=== PATIENT | male | born 1950 | race Hispanic/Latino ===

== ENCOUNTER → 2020-11-08 | Outpatient (CLI) | payer OTHER ==
[~2020-11-08] VITALS: Ht 175.3 cm; Wt 93.9 kg
[~2020-11-08] MED LIST: REGADENOSON 0.4 MG/5 ML PF SYG IVP SCH
== END | disposition home or self-care (01) ==
LOC: SHCH 07:46 → EDUNIT# 08:10
PROVIDERS: ATTEND Internal Medicine Cardiovascular Disease
DX: I25.2 Old myocardial infarction (principal); I20.9 Angina pectoris, unspecified; Z95.0 Presence of cardiac pacemaker
CPT/HCPCS: 78452; 93017; 96374; A9500 ×2; J2785

== ENCOUNTER → 2021-07-27 | Outpatient (CLI) | payer OTHER ==
[~2021-07-27] MED LIST changes: +ATOR40TA69 PO; +CARV25TA77 PO; +DEXA6TAB PO; +FURO40TA7 PO; +INSLAN SQ; +IOHEXOL 350 MG/ML 100ML INFUS..BTL IV ONE; +METF-446 PO; +METOPROLOL TARTRATE 1 MG/ML 5ML VIAL IV ONE; +OSEL75 PO; -REGADENOSON 0.4 MG/5 ML PF SYG IVP SCH; +RIVA20TA PO; +SEMA1PEN3 SQ
== END | disposition home or self-care (01) ==
LOC: RAH 07:27
PROVIDERS: ATTEND Internal Medicine Cardiovascular Disease
DX: I48.20 Chronic atrial fibrillation, unspecified (principal)
CPT/HCPCS: 75574; J3490 ×2; Q9967

== ENCOUNTER 2021-09-28 07:29 | Day surgery (SDC) | payer OTHER ==
[2021-09-22 13:12] LABS: BASOPHILS % (AUTO) 0.7 % (0.0-5.0); EOSINOPHILS % (AUTO) 2.5 % (0.0-8.0); HEMATOCRIT 44.3 % (42-54); MEAN CORPUSCULAR HEMOGLOBIN 30.2 pg (27.0-33.0); MEAN CORPUSCULAR VOLUME 91.7 fL (79-99); MONOCYTES % (AUTO) 8.6 % (3.0-13.0); NEUTROPHILS % (AUTO) 53.1 % (40.0-77.0); PLATELET COUNT (AUTO) 339 K/uL (130-400); RED BLOOD CELL COUNT(AUTO) 4.83 MIL/uL (4.50-6.20); RED CELL DISTRIBUTION WIDTH 15.6 % (11.0-15.5); WHITE BLOOD COUNT (AUTO) 11.2 K/uL (4.8-10.8)
[2021-09-22 13:17] LABS: POTASSIUM 5.1 mmol/L (3.5-5.1)
[2021-09-22 13:20] LABS: INR 1.05 (0.85-1.15); PROTHROMBIN TIME 11.4 SEC (9.6-11.6)
[2021-09-22 13:22] LABS: PARTIAL THROMBOPLASTIN TIME 32.5 SEC (26.3-35.5)
[2021-09-22 13:39] LABS: APPEARANCE,URINE CLEAR (CLEAR); BILIRUBIN,URINE NEGATIVE (NEGATIVE); COLOR,URINE YELLOW (YELLOW); GLUCOSE, URINE (UA) >=1000 mg/dL (NEGATIVE); KETONES,URINE NEGATIVE (NEGATIVE); LEUKOCYTE ESTERASE ,URINE NEGATIVE (NEGATIVE); NITRATE,URINE NEGATIVE (NEGATIVE); OCCULT BLOOD,URINE TRACE-INTACT (NEGATIVE); PH,URINE 5.5 (5.0-8.0); PROTEIN,URINE NEGATIVE (NEGATIVE); UROBILINOGEN,URINE 0.2 mg/dL (0.2-1.0)
[2021-09-22 13:41] LABS: B-TYPE NATRIURETIC PEPTIDE 90 pg/mL (0-100)
[2021-09-22 13:47] LABS: RBC,URINE 0-1 /HPF (0-1)
[2021-09-22 13:48] LABS: BACTERIA,URINE Rare /HPF (None Seen); SQUAMOUS EPITHELIAL CELL,UR Rare /HPF (0-2); WBC,URINE 0-1 /HPF (0-1)
[2021-09-27 10:19] VITALS: BP 118/58
[~2021-09-28] VITALS: Ht 175.3 cm; Wt 74.9 kg
[2021-09-28] VITALS (9 sets, daily range): BP systolic 99–146; BP diastolic 49–78
[~2021-09-28 07:29] MED LIST changes: +0.9% NACL 500ML IV.SOLN 500 ML IV SCH; +CARV12.511 PO; -CARV25TA77 PO; +CYAN500T9 PO; -DEXA6TAB PO; +DICL100G31 TP; +EMPA25TA PO; +FURO20TA4 PO; -FURO40TA7 PO; +GABA600T10 PO; -IOHEXOL 350 MG/ML 100ML INFUS..BTL IV ONE; +LEVO125C4 PO; -METOPROLOL TARTRATE 1 MG/ML 5ML VIAL IV ONE; -OSEL75 PO; +VENL-63 PO; +VITAMIN B12 PO
[2021-09-28] MEDS ORDERED: 0.9%NACL 1000ML 1,000 ML IV ONE (08:52)
[2021-09-28] MEDS ORDERED: LIDOCAINE HCL 1% 20 ML VIAL ONE (09:14)
[2021-09-28] MEDS ORDERED: IOHEXOL 350 MG/ML 100ML INFUS..BTL IV ONE (09:15)
[2021-09-28] MEDS ORDERED: NITROGLYCERIN 50MG VIAL ONE (09:15)
[2021-09-28] MEDS ORDERED: IOHEXOL-350 50ML VIAL IV ONE (09:15)
[2021-09-28] MEDS ORDERED: MIDAZOLAM HCL 1 MG/ML 2ML VIAL ONE (09:16)
[2021-09-28] MEDS ORDERED: FENTANYL CITRATE PF 50 MCG/1 ML 2ML VIAL ONE (09:16)
[2021-09-28] MEDS ORDERED: GLUCAGON 1MG KIT 1 MG ML IM PRN (10:30)
[2021-09-28] MEDS ORDERED: DEXTROSE 50%-WATER 50 ML DISP.SYRIN IV PRN (10:30)
[2021-09-28] MEDS ORDERED: NITROGLYCERIN 0.4 MG SL TAB SL PRN (10:30)
[2021-09-28] MEDS: 0.9%NACL 1000ML 1,000 ML IV SCH ×2 (10:32→14:17)
[2021-09-28] MEDS ORDERED: INSULIN HUMULIN R 100 UNIT/ML 3ML SQ SCH (11:30)
[2021-09-28] MEDS ORDERED: ACETAMINOPHEN 500 MG TABLET ONE (13:15)
[2021-09-28] MEDS ORDERED: ACETAMINOPHEN 500 MG TABLET PO ONE (13:30)
== END 2021-09-28 14:21 | disposition home or self-care (01) ==
LOC: DAH 07:29
PROVIDERS: ATTEND Internal Medicine Cardiovascular Disease
DX: I25.119 Atherosclerotic heart disease of native coronary artery with unspecified angina pectoris (principal); I11.0 Hypertensive heart disease with heart failure; I50.32 Chronic diastolic (congestive) heart failure; I47.2 Ventricular tachycardia; I45.9 Conduction disorder, unspecified; E78.5 Hyperlipidemia, unspecified; I48.20 Chronic atrial fibrillation, unspecified; E11.9 Type 2 diabetes mellitus without complications; I25.2 Old myocardial infarction; Z79.899 Other long term (current) drug therapy; Z79.82 Long term (current) use of aspirin; Z79.01 Long term (current) use of anticoagulants; Z79.890 Hormone replacement therapy; Z95.5 Presence of coronary angioplasty implant and graft; Z98.890 Other specified postprocedural states; Z86.73 Personal history of transient ischemic attack (TIA), and cerebral infarction without residual deficits; Z87.891 Personal history of nicotine dependence; Z82.49 Family history of ischemic heart disease and other diseases of the circulatory system; Z83.3 Family history of diabetes mellitus
CPT/HCPCS: 80048; 83880; 85025; 85610; 85730; 81001; 36415; 71045; 93005; 93458; 82948 ×3; Q9965; C1894 ×2; C1760; J3010; J7030; J2250; J3490; Q9967; A4215; A4222; A4221; A4663; A4216; A4606; A4223 ×3; 99156; 99157

== ENCOUNTER → 2022-01-09 | Outpatient (CLI) | payer OTHER ==
[~2022-01-09] MED LIST changes: -0.9% NACL 500ML IV.SOLN 500 ML IV SCH; +AEC81 PO; +ATOR20TA65 PO; -ATOR40TA69 PO; -CARV12.511 PO; +CYAN-35 PO; -CYAN500T9 PO; -DICL100G31 TP; -FURO20TA4 PO; +FURO20TA6 PO; +INSU100V52 SQ; +MAGN500C4 PO; +SACU1TAB PO; -VITAMIN B12 PO
== END | disposition home or self-care (01) ==
LOC: SHCH 08:35
PROVIDERS: ATTEND Internal Medicine Cardiovascular Disease
DX: I10 Essential (primary) hypertension (principal); I25.10 Atherosclerotic heart disease of native coronary artery without angina pectoris; E11.9 Type 2 diabetes mellitus without complications; E78.5 Hyperlipidemia, unspecified; I25.41 Coronary artery aneurysm; I48.91 Unspecified atrial fibrillation
CPT/HCPCS: 93306

== ENCOUNTER 2022-05-22 05:38 | Day surgery (SDC) | payer OTHER ==
[2022-05-18 15:35] LABS: BASOPHILS % (AUTO) 0.8 % (0.0-5.0); HEMATOCRIT 42.8 % (42-54); MEAN CORPUSCULAR HEMOGLOBIN 28.3 pg (27.0-33.0); MEAN CORPUSCULAR HGB CONC 32.2 g/dL (32.0-36.0); MEAN CORPUSCULAR VOLUME 87.9 fL (79-99); MONOCYTES % (AUTO) 9.3 % (3.0-13.0); NEUTROPHILS % (AUTO) 60.8 % (40.0-77.0); PLATELET COUNT (AUTO) 383 K/uL (130-400); RED BLOOD CELL COUNT(AUTO) 4.87 MIL/uL (4.50-6.20); RED CELL DISTRIBUTION WIDTH 17.1 % (11.0-15.5); WHITE BLOOD COUNT (AUTO) 10.5 K/uL (4.8-10.8)
[2022-05-18 15:39] VITALS: BP 116/52
[2022-05-18 15:51] LABS: CREATININE 1.3 mg/dL (0.5-1.5); POTASSIUM 3.9 mmol/L (3.5-5.1)
[2022-05-18 15:52] LABS: INR 1.15 (0.85-1.15); PROTHROMBIN TIME 12.4 SEC (9.6-11.6)
[2022-05-18 15:53] LABS: PARTIAL THROMBOPLASTIN TIME 36.7 SEC (26.3-35.5)
[~2022-05-22] VITALS: Ht 175.3 cm; Wt 73.9 kg
[2022-05-22] VITALS (10 sets, daily range): BP systolic 95–147; BP diastolic 50–82
[~2022-05-22 05:38] MED LIST changes: +FURO20TA4 PO; -FURO20TA6 PO; +GLIP5TAB11 PO; -INSU100V52 SQ; +LISI2.5T13 PO; +MAGN400T51 PO; -MAGN500C4 PO; +METO-408 PO; -SACU1TAB PO; +VITAMIN B2 PO
[2022-05-22] MEDS ORDERED: 0.9%NACL 1000ML 1,000 ML IV ONE (06:27)
[2022-05-22 06:43] LABS: CREATININE 1.4 mg/dL (0.5-1.5); POTASSIUM 3.6 mmol/L (3.5-5.1)
[2022-05-22] MEDS ORDERED: BUPIVACAINE/PF 0.25% 10ML VIAL IJ ONE (07:14)
[2022-05-22] MEDS ORDERED: CEFAZOLIN SODIUM 1 GM VIAL ONE (07:14)
[2022-05-22] MEDS ORDERED: LIDOCAINE HCL 1% MDV 50ML VIAL ONE (07:14)
[2022-05-22] MEDS ORDERED: MIDAZOLAM HCL 1 MG/ML 2ML VIAL ONE ×3 (07:15→10:18)
[2022-05-22] MEDS ORDERED: MEPERIDINE-PF 25 MG/ML SYG ONE ×3 (07:15→10:18)
[2022-05-22] MEDS ORDERED: IODIXANOL 320 MG/ML 100 ML VIAL ONE (07:15)
[2022-05-22] MEDS ORDERED: BACITRACIN 1 EACH PACKET TP ONE (10:33)
[2022-05-22] MEDS ORDERED: TRAM50TA4 PO (11:13)
[2022-05-22] MEDS ORDERED: ACETAMINOPHEN 500 MG TABLET PO PRN (11:30)
[2022-05-22] MEDS ORDERED: ACETAMINOPHEN WITH CODEINE 1 TAB TAB PO PRN (11:30)
== END 2022-05-22 14:50 | disposition home or self-care (01) ==
LOC: DAH 05:38
PROVIDERS: ATTEND Internal Medicine Cardiovascular Disease
DX: I44.2 Atrioventricular block, complete (principal); I25.5 Ischemic cardiomyopathy; I50.42 Chronic combined systolic (congestive) and diastolic (congestive) heart failure; I25.10 Atherosclerotic heart disease of native coronary artery without angina pectoris; E11.9 Type 2 diabetes mellitus without complications; I25.2 Old myocardial infarction; Z79.01 Long term (current) use of anticoagulants; Z79.899 Other long term (current) drug therapy; Z79.82 Long term (current) use of aspirin; Z79.84 Long term (current) use of oral hypoglycemic drugs; Z98.890 Other specified postprocedural states; Z86.73 Personal history of transient ischemic attack (TIA), and cerebral infarction without residual deficits; Z83.3 Family history of diabetes mellitus; Z82.49 Family history of ischemic heart disease and other diseases of the circulatory system; Z83.430 Family history of elevated lipoprotein(a); Z87.891 Personal history of nicotine dependence; Z95.5 Presence of coronary angioplasty implant and graft
CPT/HCPCS: 80048 ×2; 85025; 85610; 85730; 36415 ×2; 93005; 33249; 33225; 33233; 82948 ×2; 71045; C1769 ×4; C1882; C1895; C1887; J0690; J7030; J2250 ×3; J3490 ×2; J2175 ×3; Q9967; A4215; A6251; A4222; A4221; A4663; A4216; A6258; A4606; C1900 ×2; A4223 ×3; 99156; 99157

== ENCOUNTER → 2022-06-06 | Outpatient (CLI) | payer MEDICARE ==
[~2022-06-06] MED LIST changes: +TRAM50TA4 PO
[2022-06-06 12:18] LABS: BASOPHILS % (AUTO) 0.9 % (0.0-5.0); EOSINOPHILS % (AUTO) 1.5 % (0.0-8.0); HEMATOCRIT 46.1 % (42-54); MEAN CORPUSCULAR HGB CONC 32.5 g/dL (32.0-36.0); MEAN CORPUSCULAR VOLUME 86.2 fL (79-99); MONOCYTES % (AUTO) 9.3 % (3.0-13.0); PLATELET COUNT (AUTO) 458 K/uL (130-400); RED BLOOD CELL COUNT(AUTO) 5.35 MIL/uL (4.50-6.20); RED CELL DISTRIBUTION WIDTH 17.1 % (11.0-15.5); WHITE BLOOD COUNT (AUTO) 12.7 K/uL (4.8-10.8)
== END | disposition home or self-care (01) ==
LOC: LAB 06-05 15:28
PROVIDERS: ATTEND Internal Medicine Cardiovascular Disease
DX: I25.5 Ischemic cardiomyopathy (principal)
CPT/HCPCS: 36415; 85025; 87040

== ENCOUNTER → 2022-06-21 | Outpatient (CLI) | payer OTHER ==
[~2022-06-21] MED LIST changes: +AMOX1TAB16 PO; +BISA-151 PO; +FURO40TA5 PO; +PANT40TA PO
== END | disposition home or self-care (01) ==
LOC: SHCH 08:51
PROVIDERS: ATTEND Internal Medicine Cardiovascular Disease
DX: I50.22 Chronic systolic (congestive) heart failure (principal)
CPT/HCPCS: 93306

== ENCOUNTER → 2023-07-03 | Outpatient (CLI) | payer OTHER ==
[~2023-07-03] MED LIST changes: -FURO20TA4 PO; -GLIP5TAB11 PO; -VENL-63 PO
== END | disposition home or self-care (01) ==
LOC: SHCH 10:35
PROVIDERS: ATTEND Internal Medicine Cardiovascular Disease
DX: I08.3 Combined rheumatic disorders of mitral, aortic and tricuspid valves (principal); R06.09 Other forms of dyspnea; I20.9 Angina pectoris, unspecified
CPT/HCPCS: 93306

== ENCOUNTER 2025-01-26 10:54 | Emergency (ER) | payer OTHER ==
[~2025-01-26] VITALS: Ht 175.3 cm; Wt 86.2 kg
[~2025-01-26 10:54] MED LIST changes: +GABA-1405 PO; -GABA600T10 PO; -LEVO125C4 PO; +LEVO125C5 PO
[2025-01-26 12:00] LABS: NUCLEATED RED BLOOD CELLS 0.0 % (0.0-0.19); PLATELET COUNT (AUTO) 362.0 K/uL (130-400); RED BLOOD CELL COUNT(AUTO) 4.63 MIL/uL (4.50-6.20); RED CELL DISTRIBUTION WIDTH 17.3 % (11.0-15.5); WHITE BLOOD COUNT (AUTO) 9.3 K/uL (4.8-10.8)
--- NOTE | 2025-01-26 12:01 | ERN ---
General Chief Complaint: Eye Problems Stated Complaint: LEFT EYE, BLURRED VISION X 2 DAYS Time Seen by MD: 11:02 Source: patient History of Present Illness Initial Comments Mr. Guerrero, 74M came to ER with chief complaint of sudden painless vision loss of the left eye and felt like a blood vessel pop in the eye since Sunday morning. He reports no redness, painful eye movement or headache or eye pain. He reports blurry vision and can see the peripheral zone. He has history of diabetes and hypertension. Allergies: Coded Allergies: No Known Drug Allergies (Unverified Allergy, Unknown, 11/05/20) Home Meds Active Scripts Amoxicillin/Potassium Clav (Amox Tr-K Clv 875-125 mg Tab) 1 Each Tablet, 1 EACH PO BID, #14 TAB 0 Refills Prov:BEN CROWELL PIEROGI MAKER 07/11/22 Pantoprazole Sodium (Protonix) 40 Mg Tablet.dr, 40 MG PO DAILY, #60 TAB 0 Refills Prov:BEN CROWELL PIEROGI MAKER 07/11/22 Tramadol Hcl (Tramadol HCl) 50 Mg Tablet, 50 MG PO Q6HPRN PRN for PAIN, #30 TAB 0 Refills Prov:BRETT YAN MD 05/22/22 Reported Medications Furosemide (Furosemide) 40 Mg Tablet, 40 MG PO BID, TAB 07/10/22 Bisacodyl (Bisacodyl) 5 Mg Tablet.dr, 5 MG PO DAILY PRN for CONSTIPATION, TAB 07/10/22 Metoprolol Succinate (Metoprolol Succinate) 25 Mg Tab.er.24h, 25 MG PO HS, TAB 05/18/22 Aspirin (ASPIRIN 81 MG ECTAB) 81 Mg Ectab, 81 MG PO DAILY, TAB.EC 05/18/22 [Vitamin B2] No Conflict Check, 100 MG PO DAILYBKFST 05/18/22 Lisinopril (Lisinopril) 2.5 Mg Tablet, 2.5 MG PO DAILY, TAB 05/18/22 Magnesium Oxide (Magnesium Oxide) 400 Mg Tablet, 400 MG PO PCLUNCH, TAB 05/18/22 Cyanocobalamin (Vitamin B-12) (Vitamin B-12) 1,000 Mcg Capsule, 1000 MCG PO Q3D, CAP 12/02/21 Atorvastatin Calcium (Atorvastatin Calcium) 20 Mg Tablet, 20 MG PO HS, TAB 12/02/21 Insulin Glargine,Hum.rec.anlog (Lantus) 100 Units/Ml Inj, 25 UNITS SQ BID, ML 10/17/21 Levothyroxine Sodium (Levothyroxine) 125 Mcg Capsule, 125 MCG PO DAILY, CAP 09/27/21 Gabapentin (Gabapentin) 600 Mg Tablet, 600 MG PO TID, TAB 09/27/21 Empagliflozin (Jardiance) 25 Mg Tablet, 12.5 MG PO DAILY, TAB 09/27/21 Semaglutide (Ozempic) 1 Mg/0.75 Ml Pen.injctr, 0.5 MG SQ QWEEK EVERY Sunday02/06/21 Rivaroxaban (Xarelto) 20 Mg Tablet, 20 MG PO DAILY, TAB 02/06/21 Metformin HCl (Metformin HCl) 1,000 Mg Tablet, 1000 MG PO BIDAC, TAB 02/06/21 Past Medical History Past Medical History: A-Fib, CAD, CVA, Depression, Diabetes-Type II, High Cholesterol, Heart Disease Medical History Other: HODGKINS Past Surgical History: CABG Surgical History Other: SOB Family History Family History: Negative Social History Social History: Negative, Lives with family Results Laboratory and Microbiology Lab and Micro Result Laboratory Tests Test 01/26/25 11:48 White Blood Count 9.3 K/uL (4.8-10.8) Red Blood Count 4.63 MIL/uL (4.50-6.20) Hemoglobin 12.4 g/dL (14.0-18.0) L Hematocrit 39.3 % (42-54) L Mean Corpuscular Volume 84.9 fL (79-99) Mean Corpuscular Hemoglobin 26.8 pg (27.0-33.0) L Mean Corpuscular Hemoglobin Concent 31.6 g/dL (32.0-36.0) L Red Cell Distribution Width 17.3 % (11.0-15.5) H Platelet Count 362 K/uL (130-400) Mean Platelet Volume 12.0 fL (7.5-10.5) H Nucleated Red Blood Cells 0.0 % (0.0-0.19) Sodium Level 133 mmol/L (136-145) L Potassium Level 4.5 mmol/L (3.5-5.1) Chloride Level 96 mmol/L (101-111) L Carbon Dioxide Level 31 mmol/L (21-32) Blood Urea Nitrogen 12 mg/dL (7-18) Creatinine 1.0 mg/dL (0.5-1.3) Glomerular Filtration Rate Calc 80 mL/min (>90) Random Glucose 354 mg/dL (70-105) H Total Calcium 8.7 mg/dL (8.5-10.1) MDM CC: Left eye blurriness for the last few days Historian: Patient Comorbidities: CAD, AFib, dyslipidemia, CAD, diabetes, CABG Limitations by social determinants of health: None Differential diagnosis: Glaucoma, stroke, central retinal arterial occlusion, vitreous versus retinal hemorrhage, macular degeneration, other Vital signs are stable Cranial nerves are intact, TRISHA, EOMI. He has blurry vision to the left but there was no complete blindness. CT head is unremarkable Labs are unremarkable except for elevated glucose. Attempted to coordinate an ophthalmology follow up, but the patient is [facility] and [facility] with [facility]. Patient's family will contact MD for ophthalmology follow up. ED Course Orders Procedure Category Date Status Time Cbc Without LAB 01/26/25 Complete Differential 11:28 Basic Metabolic Panel LAB 01/26/25 Complete 11:28 Ct Head/Brain W/O CT 01/26/25 Resulted Contrast 11:28 Visual Acuity Test CPOE 01/26/25 Transmitted (Er) 11:54 Vital Signs Date Time Temp Pulse Resp B/P (MAP) Pulse Ox O2 Delivery O2 Flow Rate FiO2 01/26/25 13:29 98.2 78 18 129/68 98 Room Air* 0 21 01/26/25 10:58 98.2 81 16 139/62 98 Room Air 0 DX & DISP Disposition: Discharge Departure Impression: Primary Impression: Blurred vision, left eye Condition: Stable Additional Instructions: The CT scan does not show any acute changes. You do have chronic changes consistent with the age. Your blood work shows elevated blood glucose. Control your blood sugars at home with your home medications. Please follow up with the an director drug safety as soon as possible. Return to the emergency department as needed. Referrals: DAIJA FISHER MD (PCP) [place] GIBBONS MD Jan 26, 2025 12:00 SARIAH MEEK DO Jan 26, 2025 13:19
[2025-01-26 12:14] LABS: CREATININE 1.0 mg/dL (0.5-1.3); GLOMERULAR FILTR. RATE CALC 80.0 mL/min (>90); GLUCOSE,RANDOM 354.0 mg/dL (70-105); SODIUM SERUM 133.0 mmol/L (136-145); UREA NITROGEN, BLOOD 12.0 mg/dL (7-18)
--- NOTE | 2025-01-26 13:16 | HMCIMG ---
EXAM: CT Head Without IV contrast. CLINICAL HISTORY: sudden vision loss TECHNIQUE: Axial computed tomography images of the head/brain without intravenous contrast. COMPARISON: None provided. FINDINGS: BRAIN: No acute bleed or infarct. Chronic ischemic and atrophic changes. VENTRICLES: No hydrocephalus. ORBITS: The orbits are unremarkable. SINUSES AND MASTOIDS: The paranasal sinuses and mastoid air cells are clear. BONES: No fracture. SOFT TISSUES: Unremarkable. IMPRESSION: No acute bleed or infarct. Chronic ischemic and atrophic changes. /[place]
[2025-01-26 13:29] VITALS: BP 129/68; PULSE 78; RESP 18; TEMP 98.3; O2SAT 98
== END 2025-01-26 13:33 | disposition home or self-care (01) ==
LOC: EDH 10:54
DX: H53.8 Other visual disturbances (principal); E11.9 Type 2 diabetes mellitus without complications; E78.00 Pure hypercholesterolemia, unspecified; I25.10 Atherosclerotic heart disease of native coronary artery without angina pectoris; I11.9 Hypertensive heart disease without heart failure; I48.91 Unspecified atrial fibrillation; Z79.899 Other long term (current) drug therapy; Z79.4 Long term (current) use of insulin; Z79.84 Long term (current) use of oral hypoglycemic drugs
CPT/HCPCS: 36415; 70450; 80048; 85027; 99284